=== PATIENT | male | born 1970 ===

== ENCOUNTER 2018-05-02 07:32 | Emergency (ER) | payer OTHER ==
[2018-05-02 07:57] VITALS: O2SAT 98; BMI 28.0
[2018-05-02] MEDS ORDERED: TDAP Vaccine 0.5 mL Syr IM ONE (08:09)
--- NOTE | 2018-05-02 08:11 | ED PDOC ---
Arrival/HPI - General Chief Complaint: Trauma Time Seen by Provider: 05/02/18 07:54 Historian: Patient - History of Present Illness Narrative History of Present Illness (Text): 05/02/18 08:10 47 year old male, with no significant past medical history, who presents to the emergency department complaining of right middle finger injury. Patient states he was at work, lifting a crate with a coworker when he forgot his right hand w as underneath the crate and it fell on his hand. He complains of injury and pain to the right middle finger and notes that he is right hand dominate. He denies fevers, chills, headache, dizziness, chest pain, shortness of breath, dyspnea on exertion, cough, abdominal pain, nausea, vomiting, diarrhea, back pain, neck pain, or any other complaint. Time/Duration: Prior to Arrival Symptom Onset: Gradual Symptom Course: Unchanged Activities at Onset: Light Context: Work Past Medical History - Provider Review Nursing Documentation Reviewed: Yes - Psychiatric Hx Substance Use: No Family/Social History - Physician Review Nursing Documentation Reviewed: Yes Family/Social History: No Known Family HX Smoking Status: Unknown If Ever Smoked Hx Alcohol Use: No Hx Substance Use: No Allergies/Home Meds Allergies/Adverse Reactions: Allergies No Known Allergies Allergy (Verified 05/02/18 07:53) Review of Systems - Physician Review All systems were reviewed & negative as marked: Yes - Review of Systems Constitutional: absent: Fevers Respiratory: absent: SOB, Cough Cardiovascular: absent: Chest Pain Gastrointestinal: absent: Abdominal Pain, Nausea, Vomiting Musculoskeletal: Other (right middle finger pain ). absent: Back Pain, Neck Pain Neurological: absent: Headache, Dizziness Physical Exam Vital Signs Reviewed: Yes Vital Signs Temp Pulse Resp BP Pulse Ox 05/02/18 07:57 97.5 F L 75 17 132/82 98 Temperature: Afebrile Blood Pressure: Normal Pulse: Regular Respiratory Rate: Normal Appearance: Positive for: Well-Appearing, Non-Toxic, Comfortable Pain Distress: None Mental Status: Positive for: Alert and Oriented X 3 - Systems Exam Head: Present: Atraumatic, Normocephalic Pupils: Present: PERRL Extroacular Muscles: Present: EOMI Conjunctiva: Present: Normal Neck: Present: Normal Range of Motion Respiratory/Chest: Present: Clear to Auscultation, Good Air Exchange. No: Respiratory Distress, Accessory Muscle Use Cardiovascular: Present: Regular Rate and Rhythm, Normal S1, S2. 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 No: Tenderness Neurological: Present: GCS=15, CN II-XII Intact, Speech Normal Skin: Present: Warm, Dry, Normal Color, Laceration (Jagged very linear lacer ation to the palmar aspect of the tip of the right middle finger. Irregular wound egdges, largest one is 3/4 cm. Another one was approximately 1cm. Some are too small to measure. Nail is intact, no subungual hematoma.). No: Rashes Psychiatric: Present: Alert, Oriented x 3, Normal Insight, Normal Concentration Medical Decision Making ED Course and Treatment: 05/02/18 08:22 Impression: 47 year old male, who presents to the emergency department complaining of right middle finger pain. Plan: -- Boostrix vaccine -- Right hand 3rd digit X-ray -- Reassess and disposition Progress Notes: 05/02/18 08:43 Patient has a Comminuted displaced fracture distal aspect 3rd distal phalanx. I will use a digital block to see the wound before closing and prescribe him antibiotics. - RAD Interpretation Narrative RAD Interpretations (Text): 05/02/18 08:43 right hand X-ray reviewed by radiologist, shows: IMPRESSION: Comminuted displaced fracture distal aspect 3rd distal phalanx. Radiology Orders: 05/02/18 07:59 HAND RIGHT 3RD DIGIT (FINGER) [RAD] Stat Dry Heat Room Attendant: Radiologist - Procedure PROCEDURE NOTE (Text): 05/02/18 09:29 PROCEDURE: DIGITAL BLOCK Performed by the emergency provider Indication : Pain control Location: palmar aspect of the tip middle finger. jagged very linear laceration. Preparation: The area was prepped and cleansed. Procedure: The appropriate site for a nerve block was identified. Nerve block was obtained with local infiltration of 10cc of Lidocaine 1% Post-Procedure: The patient tolerated the procedure well, and there were no complications. PROCEDURE: LACERATION REPAIR Performed by the emergency provider Location: palmar aspect of the tip middle finger. Length: Irregular wound edges, largest one is 3/4 cm. Another one was approximately 1cm. Some were too small to measure. Description: {"clean wound edges","no foreign bodies"} Distal CMS: Normal. No deficits. Neurovascularly intact. Anesthesia: Lidocaine 1% Preparation: The wound was cleaned with NS and Betadyne. The area was prepped and draped in the usual sterile fashion. Exploration: The wound was explored and no foreign bodies were found. Procedure: The wound was closed with 4.0 nylon. There was adequate approximation. In total, 10 were used. Post-Procedure: Good closure and hemostasis. The patient tolerated the procedure well and there were no complications. CSM remains intact. Post procedure dressing applied. - Scribe Statement The provider has reviewed the documentation as recorded by the Scribe Elisabeth Angela Provider Scribe Attestation: All medical record entries made by the Scribe were at my direction and personally dictated by me. I have reviewed the chart and agree that the record accurately reflects my personal performance of the history, physical exam, medical decision making, and the department course for this patient. I have also personally directed, reviewed, and agree with the discharge instructions and disposition. Disposition/Present on Arrival - Present on Arrival Any Indicators Present on Arrival: No History of DVT/PE: No History of Uncontrolled Diabetes: No Urinary Catheter: No History of Decub. Ulcer: No History Surgical Site Infection Following: None - Disposition Have Diagnosis and Disposition been Completed?: Yes Diagnosis: Finger fracture, right, Laceration of right middle finger with complication Disposition: HOME/ ROUTINE Disposition Time: 10:23 Patient Plan: Discharge Condition: IMPROVED Discharge Instructions (ExitCare): Laceration Repair With Stitches (DC), Finger Fracture (DC) Additional Instructions: GEOVANNA GIBSON, thank you for letting us take care of you today. Your provider was Onelia Reyez MD and you were treated for finger injury. The emergency medical care you received today was directed at your acute symptoms. If you were prescribed any medication, please fill it and take as directed. It may take several days for your symptoms to resolve. Return to the Emergency Department if your symptoms worsen, do not improve, or if you have any other problems. Please Dr. Lawrence, the hand surgeon, in 2 days for a follow up visit. Return to the Emergency Department in 7 days for suture removal. Bring any paperwork you were given at discharge with you along with any medications you are taking to your follow up visit. Our treatment cannot replace ongoing medical care by a primary care provider outside of the emergency department. Thank you for allowing the [facility] team to be part of your care today. Prescriptions: Cephalexin [cephalexin] 500 mg PO QID #40 cap Referrals: Juanpablo Lawrence MD [Staff Provider] - Follow up with primary Forms: [employer] (Turkish), WORK NOTE
--- NOTE | 2018-05-02 08:36 | RAD ---
Date of service: 05/02/2018 PROCEDURE: Right middle finger radiographs. HISTORY: injury COMPARISON: None. TECHNIQUE: AP radiograph of the right hand, as well as spot oblique and lateral images of right middle finger were obtained. FINDINGS: RIGHT MIDDLE FINGER: Comminuted displaced fracture of the distal aspect 3rd distal phalanx. There is a displaced curvilinear bony fragment in the palmar soft tissues of the distal phalanx. Remainder of the right hand (as seen on the AP view) grossly unremarkable. JOINTS: Normal. SOFT TISSUES: Normal. OTHER FINDINGS: None. IMPRESSION: Comminuted displaced fracture distal aspect 3rd distal phalanx.
[2018-05-02] MEDS ORDERED: Lidocaine 1% Inj (20ml) IJ STA (08:46)
[2018-05-02 10:43] VITALS: BP 129/78; PULSE 80; RESP 18; TEMP 98
== END 2018-05-02 10:47 | disposition home or self-care (01) ==
LOC: ED 07:32
DX: S61.212A Laceration without foreign body of right middle finger without damage to nail, initial encounter (principal); S62.632A Displaced fracture of distal phalanx of right middle finger, initial encounter for closed fracture; W20.8XXA Other cause of strike by thrown, projected or falling object, initial encounter; Y99.0 Civilian activity done for income or pay; Z23 Encounter for immunization

== ENCOUNTER 2018-05-10 14:19 | Emergency (ER) | payer OTHER ==
[2018-05-10 15:07] VITALS: BMI 27.3
[2018-05-10 15:10] VITALS: BP 121/77; PULSE 71; RESP 18; TEMP 98.3; O2SAT 98
--- NOTE | 2018-05-10 15:25 | ED PDOC ---
Arrival/HPI - General Chief Complaint: Suture/Staple Removal Historian: Patient - History of Present Illness Narrative History of Present Illness (Text): 05/10/18 15:20 47 y/o male, pmh including rt. hand 3rd digit fracture with fracture, currrently taking the keflex, s/p sutured about 10 days ago and see if the sutures are ready to be removed. Pt. stated that he feels much better, no fever or chill, no headache or night sweat, no rash, no dizziness, no change in vision, no other medical or psychological complaints. Past Medical History - Provider Review Nursing Documentation Reviewed: Yes - Infectious Disease Hx of Infectious Diseases: None - Psychiatric Hx Substance Use: No - Anesthesia Hx Anesthesia: No Family/Social History - Physician Review Nursing Documentation Reviewed: Yes Family/Social History: Unknown Family HX Smoking Status: Unknown If Ever Smoked Hx Alcohol Use: No Hx Substance Use: No Allergies/Home Meds Allergies/Adverse Reactions: Allergies No Known Allergies Allergy (Verified 05/02/18 07:53) Review of Systems - Review of Systems Constitutional: absent: Fatigue, Fevers Eyes: absent: Vision Changes ENT: absent: Hearing Changes Respiratory: absent: SOB Cardiovascular: absent: Chest Pain Gastrointestinal: absent: Abdominal Pain, Nausea, Vomiting Skin: Laceration (rt. hand 3rd digit). absent: Rash, Pruritis, Skin Lesions, Abscess, Ulcer, Cellulitis Neurological: absent: Headache, Dizziness Psychiatric: absent: Anxiety, Depression, Suicidal Ideation Physical Exam Vital Signs Reviewed: Yes Vital Signs Temp Pulse Resp BP Pulse Ox 05/10/18 15:10 98.3 F 71 18 121/77 98 Temperature: Afebrile Blood Pressure: Normal Pulse: Regular Respiratory Rate: Normal Appearance: Positive for: Well-Appearing, Non-Toxic, Comfortable Pain Distress: Mild Mental Status: Positive for: Alert and Oriented X 3 - Systems Exam Head: Present: Atraumatic, Normocephalic Pupils: Present: PERRL Extroacular Muscles: Present: EOMI Conjunctiva: Present: Normal Mouth: Present: Moist Mucous Membranes Neck: Present: Normal Range of Motion Respiratory/Chest: Present: Clear to Auscultation, Good Air Exchange. No: Respiratory Distress, Accessory Muscle Use Cardiovascular: Present: Regular Rate and Rhythm, Normal S1, S2. No: Murmurs Abdomen: No: Tenderness, Distention, Peritoneal Signs Back: Present: Normal Inspection Upper Extremity: Present: Normal Inspection, Other (Rt. hand 3rd digit: visible laceration with 8 sutures over still healing sutured wound and no cellulitis or ulcers, FROM without limitation, sensation intact, motor 5/5, +radial pulse, capillary refill< 2 seconds, neurovascular intact. ). No: Cyanosis, Edema Lower Extremity: Present: Normal Inspection. No: Edema Neurological: Present: GCS=15, CN II-XII Intact, Speech Normal, Motor Func Grossly Intact, Gait Normal, Memory Normal Skin: Present: Warm, Dry, Normal Color. No: Rashes Psychiatric: Present: Alert, Oriented x 3, Normal Insight, Normal Concentration Medical Decision Making ED Course and Treatment: 05/10/18 15:30 -Wound is still healing, not ready for suture removal, he has finger splint on, advised to remove the sutures on day 14. -Discharge home with education on keep splint on, return in 4 days for suture removal, continue to see orthopedic and pmd within 2 days, return to the ER for any new or worsening signs or symptoms. - PA / CUSTOMER MARKETING ASSISTANT / Resident Statement / has reviewed & agrees with the documentation as recorded. Disposition/Present on Arrival - Present on Arrival Any Indicators Present on Arrival: No History of DVT/PE: No History of Uncontrolled Diabetes: No Urinary Catheter: No History of Decub. Ulcer: No History Surgical Site Infection Following: None - Disposition Have Diagnosis and Disposition been Completed?: Yes Diagnosis: Visit for wound check Disposition: HOME/ ROUTINE Disposition Time: 15:31 Patient Plan: Discharge Condition: IMPROVED Additional Instructions: -Discharge home with education on keep splint on, return in 4 days for suture removal, continue to see orthopedic and pmd within 2 days, return to the ER for any new or worsening signs or symptoms. Referrals: Juanpablo Lawrence MD [Staff Provider] - Follow up with primary Forms: [employer] ([place]), WORK NOTE
== END 2018-05-10 16:00 | disposition home or self-care (01) ==
LOC: ED 14:19
DX: Z48.00 Encounter for change or removal of nonsurgical wound dressing (principal)

== ENCOUNTER 2018-05-20 11:29 | Emergency (ER) | payer OTHER ==
[2018-05-20 11:29] VITALS: BMI 27.3
[2018-05-20 12:03] VITALS: RESP 18
[2018-05-20] MEDS ORDERED: Bacitracin 500 Units/gm Oint Foilpak UD TOP ONE (13:07)
--- NOTE | 2018-05-20 14:04 | ED PDOC ---
Arrival/HPI - General Chief Complaint: Suture/Staple Removal Time Seen by Provider: 05/20/18 11:30 Historian: Patient - History of Present Illness Narrative History of Present Illness (Text): 05/20/18 14:31 47 year old male, with no significant past medical history, presenting to the emergency department for suture removal. Patient was originally here on 05/02/18 for right hand 3rd digit laceration and fracture that was repaired with nylon sutures. Patient had fracture of the distal phalanx of the 3rd digit. During that visit his tetanus shot was updated and he took his antibiotics as prescribed, but did not follow up with a hand doctor. He returned on the 05/10/18 for removal as instructed, but it was determined it was too soon as the laceration was still healing and to return in 4 days. However, the patient is now here 10 days later. Patient denies wound drainage, redness, tenderness or swelling, fevers, chills, headache, dizziness, chest pain, shortness of breath, dyspnea on exertion, cough, abdominal pain, nausea, vomiting, diarrhea, back pain, neck pain, or any other complaint. Past Medical History - Provider Review Nursing Documentation Reviewed: Yes - Infectious Disease Hx of Infectious Diseases: None - Psychiatric Hx Substance Use: No - Anesthesia Hx Anesthesia: No Family/Social History - Physician Review Nursing Documentation Reviewed: Yes Family/Social History: No Known Family HX Smoking Status: Unknown If Ever Smoked Hx Alcohol Use: No Hx Substance Use: No Allergies/Home Meds Allergies/Adverse Reactions: Allergies No Known Allergies Allergy (Verified 05/20/18 12:01) Review of Systems - Physician Review All systems were reviewed & negative as marked: Yes - Review of Systems Constitutional: absent: Fevers Eyes: Normal. absent: Vision Changes ENT: Normal. absent: Sore Throat, Sinus Congestion Respiratory: Normal. absent: SOB, Cough Cardiovascular: Normal. absent: Chest Pain Gastrointestinal: Normal. absent: Abdominal Pain, Stool Changes, Diarrhea, Nausea, Vomiting, Appetite Changes Genitourinary Male: Normal Musculoskeletal: Normal. absent: Back Pain, Neck Pain Skin: Laceration (healed; to the right 3rd digit ). absent: Abscess, Cellulitis Neurological: Normal. absent: Headache, Dizziness Endocrine: Normal. absent: Diaphoresis Hemo/Lymphatic: Normal Psychiatric: Normal Physical Exam Vital Signs Reviewed: Yes Vital Signs Temp Pulse Resp BP Pulse Ox 05/20/18 12:03 98.1 F 64 18 142/83 97 Temperature: Afebrile Blood Pressure: Normal Pulse: Regular Respiratory Rate: Normal Appearance: Positive for: Well-Appearing, Non-Toxic, Comfortable Pain Distress: None Mental Status: Positive for: Alert and Oriented X 3 - Systems Exam Head: Present: Atraumatic, Normocephalic Pupils: Present: PERRL Extroacular Muscles: Present: EOMI Conjunctiva: Present: Normal Mouth: Present: Moist Mucous Membranes Neck: Present: Normal Range of Motion Respiratory/Chest: Present: Clear to Auscultation, Good Air Exchange. No: R espiratory Distress, Accessory Muscle Use Cardiovascular: Present: Regular Rate and Rhythm, Normal S1, S2 Upper Extremity: Present: Normal Inspection, Normal ROM, NORMAL PULSES, Neurovascularly Intact, Capillary Refill < 2s, Other (2cm well healing laceration to the volar aspect of the distal phalanx of the right 3rd digit, with 9 sutures intact.). No: Cyanosis, Edema, Tenderness, Swelling, Erythema, Temperature Abnormalties, Deformity Lower Extremity: Present: Normal ROM, Neurovascularly Intact Neurological: Present: GCS=15, CN II-XII Intact, Speech Normal, Motor Func Grossly Intact, Normal Sensory Function, Gait Normal Skin: Present: Warm, Dry, Normal Color. No: Rashes Psychiatric: Present: Alert, Oriented x 3, Normal Insight, Normal Concentration, Normal Affect, Normal Mood Medical Decision Making ED Course and Treatment: 05/20/18 14:31 Impression: 47 year old male who presents to the emergency department for suture removal. Plan: -- Suture Removal -- Bacitracin -- Reassess and disposition Prior Visits: Notes and results from previous visits were reviewed. Progress Notes: Pt states that 9 sutures were originally placed during repair. Removed 9 sutures without difficulty. No retained sutures on exploration. Pt tolerated well without complication. No redness, drainage, swelling noted. Wound is well healing. Dressed with bacitracin and sterile dressing by nursing. Advised to followup with hand doctor. Diagnostic testing results and plan of care discussed with patient. Strict instructions given regarding prescription use, importance of followup, and signs/symptoms to return to ER including fever, chills, worsening pain, signs of wound infection, or any other new/worsening symptoms. Pt verbalized understanding of discussion. Patient is A&Ox3, ambulating with steady gait, with vital signs stable for discharge. - Medication Orders Current Medication Orders: Discontinued Medications Bacitracin (Bacitracin) 1 ea TOP ONCE ONE Stop: 05/20/18 13:08 Last Admin: 05/20/18 13:30 Dose: 1 ea - Procedure PROCEDURE NOTE (Text): 05/20/18 14:29 PROCEDURE: SUTURE REMOVAL Performed by the emergency provider Location: right 3rd digit Length: 2cm curved Distal CMS: Normal. No deficits. Neurovascularly intact. No signs of infection. No redness, no discharge, and no swelling. Well healing laceration. Preparation: The wound was cleaned with NS and Betadyne. The area was prepped and draped in the usual sterile fashion. Procedure: In total, 9 sutures were removed. Post-Procedure: Good closure and hemostasis. The patient tolerated the procedure well and there were no complications. CSM remains intact. - Scribe Statement The provider has reviewed the documentation as recorded by the Scribe Elisabeth Angela Provider Scribe Attestation: All medical record entries made by the Scribe were at my direction and personally dictated by me. I have reviewed the chart and agree that the record accurately reflects my personal performance of the history, physical exam, medical decision making, and the department course for this patient. I have also personally directed, reviewed, and agree with the discharge instructions and disposition. Disposition/Present on Arrival - Present on Arrival Any Indicators Present on Arrival: No History of DVT/PE: No History of Uncontrolled Diabetes: No Urinary Catheter: No History of Decub. Ulcer: No History Surgical Site Infection Following: None - Disposition Have Diagnosis and Disposition been Completed?: No Diagnosis: Visit for suture removal Disposition: HOME/ ROUTINE Disposition Time: 12:30 Patient Plan: Discharge Condition: IMPROVED Discharge Instructions (ExitCare): Stitches Removal, Wound Care (DC) Additional Instructions: Keep wound clean, dry, covered Apply bacitracin daily and cover Followup with PMD within 2 days return to Er with any new/worsening symptoms Prescriptions: Bacitracin OINT 1 applic TD DAILY #1 tube Referrals: Juanpablo Lawrence MD [Staff Provider] - Follow up with primary Forms: [employer] (Bulgarian), WORK NOTE
[2018-05-20 14:26] VITALS: BP 132/79; PULSE 62; TEMP 98; O2SAT 98
== END 2018-05-20 14:29 | disposition home or self-care (01) ==
LOC: ED 11:29
DX: S61.212D Laceration without foreign body of right middle finger without damage to nail, subsequent encounter (principal)